=== PATIENT | female | born 1990 | race Caucasian/White ===

== ENCOUNTER 2016-12-30 10:40 | Emergency (ER) | payer MEDICAID ==
[~2016-12-30] VITALS: Ht 167.6 cm; Wt 69.1 kg
[~2016-12-30 10:40] MED LIST: NO HOME MEDICATIONS; NORCO 325 MG-51 TAB PO; PRENATAL1 TA1; PRENATAL1 TA1 PO; ZOFRAN 4MG T4 MG/TAB PO; ZOFRAN8 MG PO
[2016-12-30 10:44] VITALS: TEMP 100.4
[2016-12-30 12:00] LABS: BASO % 0.2 % (0.0-2.0); GRAN # 11.5 (1.4-6.5); GRAN % 86.4 % (42.2-75.2); LYMPH # 0.7 (1.2-3.4); LYMPH % 5.2 % (20.0-51.0); MEAN CELL VOLUME 89 fl (80.0-100.0); MEAN CORPUSCULAR HGB CONC 33 g/dl (33.0-37.0); MEAN PLATELET VOLUME 10.1 fl (7.4-10.4); MONO % 7.5 % (1.7-9.3); PLATELET COUNT 174 K/mm3 (130-400); RED BLOOD COUNT 4.06 M/mm3 (4.10-5.30); REDCELL DISTRIBUTION WIDTH-CV 13.6 % (11.5-14.5); WHITE BLOOD COUNT 13.4 K/mm3 (4.8-10.8)
[2016-12-30 12:15] LABS: HEMOGLOBIN 11.8 g/dl (12.5-16.0); MEAN CORPUSCULAR HEMOGLOBIN 29 pg (27.0-31.0)
[2016-12-30 12:24] LABS: ADJUSTED CALCIUM 8.7 mg/dL (8.4-10.2); ALBUMIN 4.4 gm/dL (3.5-5.0); BILIRUBIN,TOTAL 0.9 mg/dL (0.0-1.0); CREATININE, serum 0.75 mg/dL (0.52-1.25); POTASSIUM 3.2 mmol/L (3.4-5.0); TOTAL PROTEIN 7.6 gm/dL (6.4-8.2)
[2016-12-30 13:14] LABS: PH 5 (5-8); URINE APPEARANCE Hazy; URINE BACTERIA None Seen /hpf; URINE BILIRUBIN Negative (NEGATIVE); URINE BLOOD 2+ (NEGATIVE); URINE COLOR Yellow; URINE GLUCOSE Negative (NEGATIVE); URINE KETONE 2+ (NEGATIVE); URINE RBC 0-2 /hpf; URINE UROBILINOGEN Negative (NEGATIVE); URINE WBC 0-2 /hpf
[2016-12-30 14:03] VITALS: BP 110/64; PULSE 102
== END 2016-12-30 14:33 | disposition home or self-care (01) ==
LOC: COL.ER 10:40
PROVIDERS: Physician Assistant Medical
DX: J02.9 Acute pharyngitis, unspecified (principal); B34.9 Viral infection, unspecified; Z87.891 Personal history of nicotine dependence
CPT/HCPCS: J1885; J2270; J2405; J7030

== ENCOUNTER 2017-01-01 00:12 | Emergency (ER) | payer SELFPAY ==
[~2017-01-01] VITALS: Ht 167.6 cm; Wt 69.5 kg
[2017-01-01 00:16] VITALS: BP 123/81; TEMP 98.9
[2017-01-01] MEDS ORDERED: AMOXICILLIN 50500 MG PO (01:33)
[2017-01-01 01:41] VITALS: PULSE 113
== END 2017-01-01 02:31 | disposition home or self-care (01) ==
LOC: COL.ER 00:12
DX: J02.0 Streptococcal pharyngitis (principal); Z87.891 Personal history of nicotine dependence
CPT/HCPCS: J1885

== ENCOUNTER 2018-08-07 10:40 | Emergency (ER) | payer MEDICAID ==
[~2018-08-07] VITALS: Ht 167.6 cm; Wt 75.0 kg
[~2018-08-07 10:40] MED LIST changes: +AMOXICILLIN 50500 MG PO
[2018-08-07 10:45] VITALS: BP 138/80
[2018-08-07 13:14] VITALS: PULSE 94; TEMP 100.6
== END 2018-08-07 13:14 | disposition home or self-care (01) ==
LOC: COL.ER 10:40
DX: J98.9 Respiratory disorder, unspecified (principal); Z87.891 Personal history of nicotine dependence
CPT/HCPCS: J2405; J7030

== ENCOUNTER 2018-09-18 23:56 | Emergency (ER) | payer MEDICAID ==
[~2018-09-18] VITALS: Ht 167.6 cm; Wt 68.2 kg
[2018-09-19 00:12] VITALS: BP 133/81
[2018-09-19 01:31] VITALS: PULSE 94; TEMP 98.1
[2018-09-19] MEDS ORDERED: TAMIFLU 75MG75 MG PO (01:34)
== END 2018-09-19 01:43 | disposition home or self-care (01) ==
LOC: COL.ER 23:56
DX: J10.1 Influenza due to other identified influenza virus with other respiratory manifestations (principal); F17.210 Nicotine dependence, cigarettes, uncomplicated

== ENCOUNTER 2018-12-05 05:44 | Emergency (ER) | payer MEDICAID ==
[~2018-12-05] VITALS: Ht 167.6 cm; Wt 68.2 kg
[~2018-12-05 05:44] MED LIST changes: +TAMIFLU 75MG75 MG PO
[2018-12-05 05:53] VITALS: BP 128/80; PULSE 99; TEMP 97.1
[2018-12-05 07:02] LABS: BASO % 0.4 % (0.0-2.0); EOS # 0.1 (0.0-0.7); EOS % 0.9 % (0-4.0); GRAN # 5.9 (1.4-6.5); GRAN % 69.1 % (42.2-75.2); HEMOGLOBIN 10.2 g/dl (12.5-16.0); LYMPH # 1.7 (1.2-3.4); LYMPH % 20.1 % (20.0-51.0); MEAN CELL VOLUME 84 fl (80.0-100.0); MEAN CORPUSCULAR HEMOGLOBIN 26 pg (27.0-31.0); MEAN CORPUSCULAR HGB CONC 31 g/dl (33.0-37.0); MEAN PLATELET VOLUME 9.3 fl (7.4-10.4); MONO # 0.8 (0.1-0.6); PLATELET COUNT 292 K/mm3 (130-400); RED BLOOD COUNT 3.93 M/mm3 (4.10-5.30); REDCELL DISTRIBUTION WIDTH-CV 14.6 % (11.5-14.5)
[2018-12-05 07:04] LABS: HEMATOCRIT 33.1 % (37.0-47.0)
[2018-12-05 07:25] LABS: ALBUMIN 4.3 gm/dL (3.5-5.0); BILIRUBIN,TOTAL 0.4 mg/dL (0.0-1.0); CALCIUM 9.5 mg/dL (8.4-10.2); CREATININE, serum 0.78 (0.52-1.25); POTASSIUM 3.8 mmol/L (3.4-5.0); TOTAL PROTEIN 7.5 gm/dL (6.4-8.2)
== END 2018-12-05 08:00 | disposition home or self-care (01) ==
LOC: COL.ER 05:44
PROVIDERS: Emergency Medicine
DX: R07.81 Pleurodynia (principal)

== ENCOUNTER → 2019-01-05 | Outpatient (CLI) | payer MEDICAID | LOC: COL.RAD 22:32 | DX: O20.9 Hemorrhage in early pregnancy, unspecified (principal); Z3A.01 Less than 8 weeks gestation of pregnancy ==

== ENCOUNTER 2019-03-10 11:02 | Emergency (ER) | payer MEDICAID ==
[~2019-03-10] VITALS: Ht 167.6 cm; Wt 70.5 kg
[2019-03-10 11:46] LABS: STREP SCREEN NEGATIVE
[2019-03-10 12:07] LABS: MONOSCREEN NEGATIVE
[2019-03-10 13:53] VITALS: BP 117/72; PULSE 112; TEMP 98.7
== END 2019-03-10 14:10 | disposition home or self-care (01) ==
LOC: COL.ER 11:02
PROVIDERS: Emergency Medicine; Nurse Practitioner
DX: J02.9 Acute pharyngitis, unspecified (principal); Z90.49 Acquired absence of other specified parts of digestive tract
CPT/HCPCS: J0561

== ENCOUNTER 2021-04-20 17:24 | Emergency (ER) | payer MEDICAID ==
[~2021-04-20] VITALS: Ht 167.6 cm; Wt 68.2 kg
[2021-04-20 17:54] VITALS: TEMP 99
[2021-04-20 18:39] LABS: BASO % 0.2 % (0.0-2.0); EOS # 0.1 (0.0-0.7); EOS % 0.8 % (0-4.0); GRAN % 72.2 % (42.2-75.2); HEMOGLOBIN 10.7 g/dl (12.5-16.0); LYMPH # 1.7 (1.2-3.4); LYMPH % 17.8 % (20.0-51.0); MEAN CELL VOLUME 81 fl (80.0-100.0); MEAN CORPUSCULAR HEMOGLOBIN 26 pg (27.0-31.0); MEAN CORPUSCULAR HGB CONC 32 g/dl (33.0-37.0); MEAN PLATELET VOLUME 9.5 fl (7.4-10.4); MONO # 0.8 (0.1-0.6); MONO % 8.7 % (1.7-9.3); PLATELET COUNT 243 K/mm3 (130-400); RED BLOOD COUNT 4.14 M/mm3 (4.10-5.30); REDCELL DISTRIBUTION WIDTH-CV 17.2 % (11.5-14.5)
[2021-04-20 18:43] LABS: ALBUMIN 4.6 gm/dL (3.5-5.0); BILIRUBIN,TOTAL 0.3 mg/dL (0.0-1.0); CALCIUM 9.2 mg/dL (8.4-10.2); CREATININE, serum 0.62 (0.52-1.25); POTASSIUM 3.5 mmol/L (3.4-5.0); TOTAL PROTEIN 7.8 gm/dL (6.4-8.2)
[2021-04-20 18:53] LABS: HEMATOCRIT 33.6 % (37.0-47.0)
[2021-04-20 20:53] VITALS: BP 124/85; PULSE 73
== END 2021-04-20 20:53 | disposition home or self-care (01) ==
LOC: COL.ER 17:24
PROVIDERS: Physician Assistant
DX: O03.9 Complete or unspecified spontaneous abortion without complication (principal)

== ENCOUNTER 2021-05-28 16:26 | Inpatient (IN) | payer MEDICAID ==
[~2021-05-28] VITALS: Ht 167.6 cm; Wt 68.9 kg
[2021-05-28 17:31] LABS: BASO % 0.2 % (0.0-2.0); GRAN # 11.5 K/mm3 (1.4-6.5); GRAN % 86.7 % (42.2-75.2); LYMPH # 0.6 K/mm3 (1.2-3.4); LYMPH % 4.4 % (20.0-51.0); MEAN CELL VOLUME 82 fl (80.0-100.0); MEAN CORPUSCULAR HGB CONC 31 g/dl (33.0-37.0); MEAN PLATELET VOLUME 9.5 fl (7.4-10.4); MONO # 1.1 K/mm3 (0.1-0.6); MONO % 8.1 % (1.7-9.3); PLATELET COUNT 226 K/mm3 (130-400); RED BLOOD COUNT 3.72 M/mm3 (4.10-5.30)
[2021-05-28 17:32] LABS: HEMOGLOBIN 9.5 g/dl (12.5-16.0); MEAN CORPUSCULAR HEMOGLOBIN 26 pg (27.0-31.0)
[2021-05-28 17:33] LABS: HEMATOCRIT 30.5 % (37.0-47.0)
[2021-05-28 17:48] LABS: ALBUMIN 4.1 gm/dL (3.5-5.0); BILIRUBIN,TOTAL 0.5 mg/dL (0.2-1.2); C-REACTIVE PROTEIN 7.89 mg/dL (0.00-0.50); CALCIUM 9.3 mg/dL (8.4-10.2); CREATININE, serum 0.86 mg/dL (0.57-1.11); POTASSIUM 3.3 mmol/L (3.5-4.5); TOTAL PROTEIN 7.6 gm/dL (6.2-8.1)
[2021-05-28 18:31] LABS: MAGNESIUM 1.9 mg/dL (1.6-2.6); PHOSPHOROUS 2.2 mg/dL (2.3-4.7)
[2021-05-28 21:45] LABS: STREP SCREEN NEGATIVE
[2021-05-28 22:06] LABS: MONOSCREEN NEGATIVE
[2021-05-28 23:16] LABS: COLLECTION METHOD CLEAN CATCH
[2021-05-28 23:30] LABS: MUCOUS Present /lpf; PH 6 (5-8); URINE APPEARANCE Clear; URINE BACTERIA None Seen /hpf; URINE BILIRUBIN Negative (NEGATIVE); URINE BLOOD 2+ (NEGATIVE); URINE COLOR Yellow; URINE GLUCOSE Negative (NEGATIVE); URINE KETONE 2+ (NEGATIVE); URINE LEUKOCYTE ESTERASE Negative (NEGATIVE); URINE NITRATE Negative (NEGATIVE); URINE PROTEIN(semi-quant) Negative (NEGATIVE); URINE RBC 0-2 /hpf; URINE UROBILINOGEN Negative (NEGATIVE)
[2021-05-29] VITALS (9 sets, daily range): BP systolic 96–125; BP diastolic 48–76; PULSE 66–102; TEMP 97.5–98.7
--- NOTE | 2021-05-29 00:12 | NUR ---
RECEIVED REPORT FROM ED RNAKBAR. AWAITING PATIENT ARRIVAL TO ROOM 329.
--- NOTE | 2021-05-29 00:35 | NUR ---
PATIENT ARRIVED TO ROOM VIA ED CART WITH ED PCT PRESENT. PATIENT ABLE TO STAND, AMB SHORT DISTANCE FROM ED CART TO ROOM BED WITH NO REPORTED COMPLAINTS.
[2021-05-29] MEDS ORDERED: PRENATE W/QUAT PO (00:59)
--- NOTE | 2021-05-29 07:14 | NUR ---
CHANGE OF SHIFT REPORT GIVEN TO DAY SHIFT NURSE, JOCELIN BRUCE.
[2021-05-29 07:36] LABS: MEAN CELL VOLUME 85 fl (80.0-100.0); MEAN CORPUSCULAR HGB CONC 31 g/dl (33.0-37.0); MEAN PLATELET VOLUME 9.5 fl (7.4-10.4); PLATELET COUNT 222 K/mm3 (130-400); RED BLOOD COUNT 3.41 M/mm3 (4.10-5.30); REDCELL DISTRIBUTION WIDTH-CV 16.3 % (11.5-14.5)
[2021-05-29 07:39] LABS: HEMATOCRIT 28.8 % (37.0-47.0); HEMOGLOBIN 8.9 g/dl (12.5-16.0); MEAN CORPUSCULAR HEMOGLOBIN 26 pg (27.0-31.0)
[2021-05-29 07:51] LABS: CREATININE, serum 0.65 mg/dL (0.57-1.11); PHOSPHOROUS 2.7 mg/dL (2.3-4.7); POTASSIUM 4.1 mmol/L (3.5-4.5)
[2021-05-29 08:37] LABS: BAND 23 % (0-10); LYMPHOCYTE 2 % (20.0-51.0); NEUTROPHILS 74 % (42.0-75.2); PLATELET ESTIMATE NORMAL (NORMAL)
--- NOTE | 2021-05-29 13:04 | NUR ---
Initial visit; Patient thanked Evaluation Assistant for offering prayer and God's blessings and for continuing to follow up.
--- NOTE | 2021-05-29 13:13 | NUR ---
JAMES met with patient and her , Rell, at bedside. Rell's contact number is [phone]. Patient is in the process of looking for a PCP. Patient reports that she recently had a miscarriage and was using Dr. Eliu Jaramillo. Patient uses [facility] for her pharmacy needs and she states she has no difficulty affording or obtaining them. Patient has no DME or 02 needs and she does not have an MPOA but would be interested in the form. JAMES provided POA form to patient and will continue to follow for d/c needs. D/C plan: home
--- NOTE | 2021-05-29 13:15 | NUR ---
Pt has overall done okay today. Pain controlled by IV pain medication. Pt does not feel like drinking anything, but she did tolerate a jello. Pt has been up and took a shower. in present in the room. No needs verbalized, will continue to monitor
--- NOTE | 2021-05-29 18:03 | NUR ---
Pt states that she overall feels a little better. She did have a friend visiting this afternoon. She is tolerating cold liquids. PRN pain medication given when requested throughout the day.
--- NOTE | 2021-05-29 18:45 | NUR ---
RECEIVED CHANGE OF SHIFT REPORT FROM DAY SHIFT NURSE. PATIENT RESTING IN BED WITH NO NEEDS OR CONCERNS REPORTED AT TIME OF REPORT.
--- NOTE | 2021-05-29 20:00 | NUR ---
PATIENT TOLERATING CLEAR HOT/WARM LIQUIDS, REPORTS NOT ABLE TO TOLERATE COOL/COLD LIQUIDS. SEE MAR FOR PAIN MEDS GIVEN. UP IN ROOM WITH NO REPORTED PROBLEMS OR CONCERNS. IV FLUIDS INFUSING WITH NO PROBLEMS. OBSERVED BACK OF THROAT CLEAR OF REDNESS/SWELLING, ORAL MUCOSA PINK AND INTACT AT THIS TIME.
--- NOTE | 2021-05-29 23:20 | NUR ---
PATIENT SLEEPING, DOES NOT WAKE WHEN DOOR TO ROOM IS OPENED BY STAFF NURSE DURING ROUNDS. OBSERVED BREATHING NONLABORED AND EVEN. IV FLUIDS INFUSING WITH NO PROBLEMS.
[2021-05-30 03:40] VITALS: BP 108/53; PULSE 58; TEMP 97.7
[2021-05-30 06:52] LABS: BASO % 0.1 % (0.0-2.0); GRAN % 84.5 % (42.2-75.2); LYMPH # 1.4 K/mm3 (1.2-3.4); LYMPH % 7.7 % (20.0-51.0); MEAN CELL VOLUME 84 fl (80.0-100.0); MEAN CORPUSCULAR HGB CONC 31 g/dl (33.0-37.0); MONO # 1.2 K/mm3 (0.1-0.6); MONO % 6.9 % (1.7-9.3); PLATELET COUNT 236 K/mm3 (130-400); REDCELL DISTRIBUTION WIDTH-CV 16.4 % (11.5-14.5)
--- NOTE | 2021-05-30 06:52 | NUR ---
CHANGE OF SHIFT REPORT GIVEN TO DAY SHIFT NURSE, REKHA BRUCE.
--- NOTE | 2021-05-30 06:53 | NUR ---
Report received from JANIS Burkett. Pt. resting in bed w/ eyes closed at this time. Call light and belongings in reach.
[2021-05-30 06:58] LABS: HEMATOCRIT 25.2 % (37.0-47.0); HEMOGLOBIN 7.9 g/dl (12.5-16.0); MEAN CORPUSCULAR HEMOGLOBIN 26 pg (27.0-31.0)
[2021-05-30 07:23] LABS: CALCIUM 8.5 mg/dL (8.4-10.2); CREATININE, serum 0.62 mg/dL (0.57-1.11); POTASSIUM 4.2 mmol/L (3.5-4.5)
[2021-05-30 07:41] VITALS: BP 134/75; PULSE 61; TEMP 97.8
--- NOTE | 2021-05-30 08:15 | NUR ---
AM assessment complete and AM meds administered. Pt. reporting pain to throat, dilaudid administered, effect pending. Pt. reports feeling better compared to yesterday. Pt. reports she will order a clear liquid tray for breakfast and hot tea provided. Pt. denies further needs at this time, call light in reach.
[2021-05-30] MEDS ORDERED: CLEOCIN HCL300 MG PO (09:20)
[2021-05-30] MEDS ORDERED: FERROUS SU300 MG/5 M PO (09:21)
[2021-05-30] MEDS ORDERED: MEDROL 4MG DOSPA4 MG PO (09:21)
[2021-05-30] MEDS ORDERED: MOTRIN SUSP20 MG/ML PO (09:24)
--- NOTE | 2021-05-30 10:13 | NUR ---
Follow-up visit; Patient thanked Laundry Machine Mechanic for looking in on her again today and states she will most likely be discharged soon. Laundry Machine Mechanic offered God's blessings.
--- NOTE | 2021-05-30 10:14 | NUR ---
SW provided patient with list of primary care physicians to establish with.
--- NOTE | 2021-05-30 11:56 | NUR ---
Pt. to be discharged home. IV removed, site c/d/i. Paperwork reviewed w/ patient, pt. verbalized understanding of follow up prescriptions, as well as follow up appointments with ENT and PCP. Pt. agreeable w/ plan of care. Pt. to leave the floor w/ this RN.
== END 2021-05-30 12:00 | disposition home or self-care (01) | DRG 872 ==
LOC: COL.ER 16:26 → SURG 21:57
PROVIDERS: Nurse Practitioner Family; Physician Assistant; ADMIT Family Medicine
DX: A41.9 Sepsis, unspecified organism (principal); E87.2 Acidosis; D64.9 Anemia, unspecified; E87.6 Hypokalemia; E83.39 Other disorders of phosphorus metabolism; J02.9 Acute pharyngitis, unspecified; Z20.822 Contact with and (suspected) exposure to COVID-19
CPT/HCPCS: 99223-AI; 99232-AI; 99239; J0696; J1100; J1170; J1650; J1885; J3480; J7030; J7050; Q9967